=== PATIENT | male | born 1965 | race Caucasian/White ===

== ENCOUNTER 2024-10-30 10:29 | Day surgery (SDC) | payer OTHER, SELFPAY ==
[2024-10-27 14:14] VITALS: BMI 33.2
[2024-10-27 14:36] LABS: % Basophils 0.6 % (0-2); % Eosinophils 1.9 % (0-6); % Immature Granulocytes 0.2 % (0-0.5); % Lymphocytes 18.2 % (20.5-51.1); % Monocytes 12.9 % (1.7-9.3); % Neutrophils 66.2 % (42.2-75.2); Absolute Eosinophils 0.1 10^3/uL (0-0.7); Absolute Lymphocytes 0.9 10^3/uL (1.2-3.4); Absolute Monocytes 0.6 10^3/uL (0.1-0.6); Absolute Neutrophils 3.1 10^3/uL (1.4-6.5); Mean Corp Hgb Conc. 33.3 g/dL (33.0-37.0); Mean Corpuscular Hgb 27.5 pg (27.0-31.0); Mean Corpuscular Volume 82.5 fL (80.0-94.0); Mean Platelet Volume 9.4 fL (7.4-10.4); Nucleated Red Blood Cells % 0 % (-); Platelet Count 218 10^3/uL (130-400); Red Blood Cell Count 5.82 10^6/uL (4.70-6.10); Red Cell Dist. Width 14.5 % (11.5-14.5); White Blood Cell Count 4.7 10^3/uL (4.8-10.8)
[2024-10-27 14:44] LABS: Erythrocyte Sed Rate 7 mm/hour (0-20)
[2024-10-27 14:57] LABS: Blood Urea Nitrogen 18 mg/dl (9-20); Calcium 9.8 mg/dl (8.4-10.2); Carbon Dioxide 25 mmol/L (22-30); Chloride 102 mmol/L (98-107); Estimated Creatinine Clearance 123 ml/min; Glucose 238 mg/dl (70-99); Potassium 4.7 mmol/L (3.5-5.1); Sodium 137 mmol/L (135-145); eGFR > 60.00
[2024-10-30] VITALS (18 sets, daily range): BP systolic 110–176; BP diastolic 65–100; BMI 33.2
[2024-10-30 11:23] LABS: Glucose - Point of Care 242 mg/dl (70-99)
[2024-10-30] MEDS: NORMOSOL-R/PLASMALYTE-A 1000 IV (11:24)
[2024-10-30] MEDS: CELEBREX 200 MG PO (11:25)
[2024-10-30] MEDS: TYLENOL 1000 MG PO (11:25)
[2024-10-30] MEDS: NOVOLOG vial 2 UNITS SC (12:14)
[2024-10-30 13:32] LABS: Glucose - Point of Care 224 mg/dl (70-99)
[2024-10-30 14:54] LABS: Glucose - Point of Care 169 mg/dl (70-99)
--- NOTE | 2024-10-30 15:54 | HPS.HSE ---
Family Physician
-
Family Physician: Madhavi Dial
Chief Complaint
-
Post-op for Charcot Reconstruction
History of Present Illness
56-year-old male with past medical history of diabetes mellitus, hyperlipidemia, hypertension who is presenting on postop day 0 status post right foot external fixator application and Charcot reconstruction. Patient admitted for postoperative
observation. Last hemoglobin A1c was 9.5 on 08/28/24. Patient states that he is feeling well post procedure. Denies any acute complaints at this time. Notes other than foot pain, has only been dealing with chronic back pain at home. Otherwise, no
recent medical issues. Chronic medical conditions as above.
Medical History
Past Medical History
Past Medical History: Reports Other
Additional Past Medical History:
Type 2 diabetes mellitus, hyperlipidemia, hypertension
Past Surgical History: Reports Other
Additional Past Surgical History:
Appendectomy ()
Social History
Tobacco: Non-smoker
Alcohol: Occasional
Drug: None
Family History
Family History: Not pertinent
Allergies / Home Medications
Allergies reflects when Allergies were last updated in [facility].
Home Medications with original date entered in [employer] [facility]
Allergy/Medication List:
NKDA
Jardiance 25 mg p.o. daily
Losartan 25 mg p.o. daily
Metformin 1000 mg p.o. twice daily
Rosuvastatin 5 mg p.o. daily
Review of Systems
-
History Source: Patient
Constitutional: Reports No Symptoms
Respiratory: Reports No Symptoms
Cardiac: Reports No Symptoms
Abdomen/GI: Reports No Symptoms
Musculoskeletal: Reports Joint Pain
Neurological: Reports No Symptoms
Physical Exam
Vital Signs
Vital Signs
Temp Pulse Resp BP Pulse Ox
97.6 F 86 14 133/73 96
10/30/24 14:50 10/30/24 15:15 10/30/24 15:15 10/30/24 15:15 10/30/24 15:15
Physical Exam
General: No Apparent Distress, Comfortable and Conversant
HEENT: NormoCephalic and Anicteric
Respiratory: Clear; No Wheezes, Rales or Rhonchi
Cardiac: S1/S2 and Regular Rhythm
GI: Soft and Non Tender
Musculoskeletal: Other (external fixation device on the right foot wrapped in STACY bandage)
Skin: Warm
Neuro: Awake, Alert and Oriented
Psych: Calm
Laboratory Results
-
10/27/24 13:29
10/27/24 13:29
Data Reviewed
-
Lab Data: Labs Reviewed by me
Impression/Plan
-
1. Charcot Arthropathy
- POD #0 for external fixation device placement and Charcot reconstruction surgery
- Per podiatry:
- Strict non-weight bearing
- Ancef x 3 dose
- PT/OT eval and treat
- Home dressings and pin care 3x/week
- Pain Control per podiatry
2. Type 2 DM
- Continue Home Medications
- Start Insulin Sliding Scale (Moderate Resistance)
- HbA1c (08/30/24): 9.5
3. HLD
- Continue Home Medication (Rosuvastatin)
4. HTN
- Continue Home Medication (Losartan)
[2024-10-30 15:55] LABS: Glucose - Point of Care 147 mg/dl (70-99)
--- NOTE | 2024-10-30 16:00 | W.PN.UPDATE ---
Update Note
Progress Note Update
I personally performed a history and physical exam of the patient and discussed management with the resident. I reviewed the resident's note and agree with the documented findings and plan of care HPI/CC.
Patient is a 59-year-old male with past medical history of hyperlipidemia, maa-[id number] diabetes mellitus, essential hypertension, neuropathy who was brought into for elective right foot surgery of charcoaled foot. Patient
postoperatively requires IV pain medication and evaluation by physical therapist in the morning and hospitalist service were requested for patient to be admitted. Patient was seen in PACU and lying comfortably. Not voicing any complaint of ongoing
problems of dizziness/shortness of breath/chest pain/palpitation/abdominal pain/nausea/vomiting. No change in bowel bladder habits.
HEENT: No pallor, cyanosis, or jaundice. Throat clear.
NECK: Supple. No JVD.
RESPIRATORY: Lungs clear to auscultation.
CVS: S1, S2 normal. RRR. No murmur, rub or gallop.
ABDOMEN: Soft, non-tender. No distension. BS+/normal.
EXTREMITIES: Right foot dressing in place
CAMP MANAGER: AOx3. No focal deficits.
1. Status post surgical fixation of right charcoat foot
- POD # 0 after external fixation/foot sx
- Electric[employer]station to manage postoperative care
- Maintain on IV Dilaudid/oral pain medication for pain control
- PT to evaluation in the morning
2. NIDDM
- Maintain on home dose of metformin/Jardiance
- Start 1800 ADA diet
- Maintain on insulin sliding scale
3. Essential HTN
- conitnue on losartan
4. HLD
- maintain on crestor
DVT PPX -scd
Full code
Total time spent : 77 mins
I personally saw and examined the patient.
I have reviewed all diagnostic interpretations and treatment plans as written.
Time includes patient management by me, time spent at the patients bedside, time to review lab and imaging results, discussing patient care, documentation in the medical record, and time spent with the family or caregiver and discussing care plan
with RN/Consultants.
[2024-10-30] MEDS: NOVOLOG FLEXPEN-MODERATE RESISTANCE SC (16:11)
[2024-10-30] MEDS: NEURONTIN 300 MG PO ×2 (16:14→21:28)
[2024-10-30] MEDS: LOVENOX 40 MG SC (18:29)
--- NOTE | 2024-10-30 18:53 | SUR.PHASEI ---
comfortable in pacu, awaiting bed availability. vss, color good, glucose monitored and tolerating diet. visits briefly in pacu and kept updated.
[2024-10-30] MEDS: GLUCOPHAGE XR EXTENDED RELEASE 1000 MG PO ×2 (19:24→21:28)
[2024-10-30 19:25] LABS: Glucose - Point of Care 343 mg/dl (70-99)
[2024-10-30] MEDS: ANCEF 5 IV (19:26)
[2024-10-30] MEDS: NOVOLOG vial 6 UNITS SC (19:57)
[2024-10-30 21:45] LABS: Glucose - Point of Care 224 mg/dl (70-99)
[2024-10-31 03:05] VITALS: BP 142/83
[2024-10-31] MEDS: ANCEF 5 IV ×2 (05:26→13:25)
[2024-10-31 06:10] LABS: Hematocrit 41.1 % (39.0-52.0); Hemoglobin 13.8 g/dL (13.0-18.0); Mean Corp Hgb Conc. 33.6 g/dL (33.0-37.0); Mean Corpuscular Hgb 27.5 pg (27.0-31.0); Mean Platelet Volume 9.1 fL (7.4-10.4); Platelet Count 192 10^3/uL (130-400); Red Blood Cell Count 5.01 10^6/uL (4.70-6.10); Red Cell Dist. Width 14.6 % (11.5-14.5); White Blood Cell Count 6.2 10^3/uL (4.8-10.8)
[2024-10-31 06:34] LABS: Blood Urea Nitrogen 14 mg/dl (9-20); Carbon Dioxide 22 mmol/L (22-30); Chloride 107 mmol/L (98-107); Estimated Creatinine Clearance > 125 ml/min; Glucose 174 mg/dl (70-99); Potassium 4.3 mmol/L (3.5-5.1); Sodium 135 mmol/L (135-145); eGFR > 60.00
[2024-10-31 07:00] VITALS: BP 149/84
[2024-10-31 07:41] LABS: Glucose - Point of Care 178 mg/dl (70-99)
--- NOTE | 2024-10-31 07:54 | W.PN.HOSP.TC ---
Today's Communication/Plan
-
.
Assessment / Plan
Assessment / Plan
1. Charcot Arthropathy
- POD #1 for external fixation device placement and Charcot reconstruction surgery
- Per podiatry:
- Strict non-weight bearing
- Ancef x 3 dose (complete)
- PT/OT eval and treat
- Home dressings and pin care 3x/week
- Pain Control per podiatry
- Rolling Walker
2. Type 2 DM
- Continue Home Medications
- Start Insulin Sliding Scale (Moderate Resistance)
- HbA1c (08/30/24): 9.5
- Repeat at goal, 7.7
3. HLD
- Continue Home Medication (Rosuvastatin)
4. HTN
- Continue Home Medication (Losartan)
Cleared for discharge.
Anticipated Discharge: Today
Subjective/Interval History
-
Date of Service: October 31, 2024
Patient seen and examined while resting comfortably in bed. No acute complaints this morning. States that pain is well controlled on current regimen of medication. Physical therapy to come in this morning.
Objective Data
-
Labs:
Laboratory Results
10/31/24
05:28
WBC 6.2
Hgb 13.8
Hct 41.1
Plt Count 192
Sodium 135
Potassium 4.3
Chloride 107
Carbon Dioxide 22
BUN 14
Creatinine 0.6 L
Glucose 174 H
Calcium 9.0
Vital Signs:
Vital Signs
Temp Pulse Resp BP Pulse Ox
99.3 F 97 16 149/84 94
10/31/24 07:00 10/31/24 07:00 10/31/24 07:00 10/31/24 07:00 10/31/24 07:00
I&O
10/30/24 10/31/24 11/01/24
06:59 06:59 06:59
Intake Total 1380 / 1380
Output Total 900 / 900
Balance 480 / 480
Review of Systems
-
History Source: Patient
Constitutional: Reports No Symptoms
Respiratory: Reports No Symptoms
Cardiac: Reports No Symptoms
Musculoskeletal: Reports No Symptoms
Neuro: Reports No Symptoms
Physical Exam
-
General: Well Developed, Well Nourished, No Apparent Distress and Comfortable
HEENT: Normocephalic and Atraumatic
Respiratory: Clear to Auscultation; Negative Wheezes, Rales or Rhonchi
Cardiac: Regular Rhythm and S1/S2
GI: Soft and Nontender
Musculoskeletal: No Clubbing, No Cyanosis, No Edema and Other (no calf tenderness. Right foot is an external fixation apparatus, STACY bandage in place. )
Skin: Warm and Dry
Neuro: Awake, Alert and Oriented
Psych: Calm
Data Reviewed
-
Labs: Labs Reviewed by me and Discussed with Patient
[2024-10-31 08:47] LABS: Glycohemoglobin (HgbA1c) 7.7 % (4.0-5.6)
[2024-10-31] MEDS: GLUCOPHAGE XR EXTENDED RELEASE 1000 MG PO (09:26)
[2024-10-31] MEDS: FARXIGA 10 MG PO (09:27)
[2024-10-31] MEDS: CRESTOR 5 MG PO (09:27)
[2024-10-31] MEDS: COZAAR 25 MG PO (09:28)
[2024-10-31] MEDS: NEURONTIN 300 MG PO (09:28)
[2024-10-31] MEDS: NOVOLOG FLEXPEN-MODERATE RESISTANCE 1 UNITS SC (09:30)
--- NOTE | 2024-10-31 09:46 | CM ---
Addendum entered by Omar Lizarraga 10/31/24 14:29:
CM met with pt again and pt's spouse at bedside.
PT and OT evaluations noted - home PT/OT recommended. Per MD, pt will need VN services for wound care, PT and OT. PT issued a walker to the pt.
According to MD pt most likely will be discharge home today.
Both pt and his spouse are aware that pt most likely will be discharged home today and pt's spouse stated she will transport the pt home. VN choices provided, [facility] preferred. A referral to [facility] made.
Please fax discharge instructions to [facility] at [phone]
D/C plan: home with [facility], walker and family support. Spouse to transport.
Original Note:
CM following re: discharge planning.
Reviewed pt's chart, met with pt.
Pt is a 59 year old male, admitted with primary dx of Charcot Arthropathy. POD #1 for external fixation device placement and Charcot reconstruction surgery.
Pt reports he lives with spouse 1SH, 1 step to enter, has no children. Pt reports he has crutches, cane and a wheelchair and pt stated he feels he will need a walker. Pt expressed his desire to return back home and his spouse will transport home.
Pt is aware he is strict NWB when goes home.
PT and OT will evaluate the pt to determine a level of care at discharge.
PCP: Madhavi Dial
Pharmacy: [facility]
D/C plan: home with anticipated VN services if recommended by PT/OT.
CM will follow with discharge plan updates as hospitalization progresses
[2024-10-31 11:00] VITALS: BP 145/82
[2024-10-31 12:44] LABS: Glucose - Point of Care 190 mg/dl (70-99)
[2024-10-31 12:53] VITALS: BP 154/91; PULSE 102; O2SAT 95
[2024-10-31 12:57] VITALS: BP 154/91; PULSE 106
[2024-10-31] MEDS: NOVOLOG FLEXPEN-MODERATE RESISTANCE SC ×2 (13:31→17:38)
--- NOTE | 2024-10-31 14:00 | W.PN.UPDATE ---
Update Note
Progress Note Update
I saw and evaluated the patient. I reviewed the resident�s note and agree with findings and plan as documented in the resident�s note.
1. Status post surgical fixation of right charcoat foot
- POD # 1 after external fixation/foot sx for charcoat foot
- [employer]s to manage postoperative care
- Pain control with regimen
- PT evaluated and patient appropriate for home discharge with rolling walker
2. NIDDM
- Maintain on home dose of metformin/Jardiance
- Start 1800 ADA diet
- Maintain on insulin sliding scale
3. Essential HTN
- conitnue on losartan
4. HLD
- maintain on crestor
DVT PPX -scd
Full code
Discussed with automotive finance manager, who will be evaluating patient later in the afternoon and patient is for discharge after that
[2024-10-31 15:00] VITALS: BP 155/81
--- NOTE | 2024-10-31 16:32 | W.PN.SURGUPD ---
Surgical Update
Surgical Update
59 yo M s/p RLE external fixator application
-Patient seen and evaluated at bedside, dressings remain C/D/I
-RLE WB for transfer acceptable
-Stable for DC
-Follow up in 2 weeks at [facility]
[2024-10-31] MEDS: NEURONTIN PO (17:38)
[2024-10-31] MEDS: GLUCOPHAGE XR EXTENDED RELEASE PO (17:39)
--- NOTE | 2024-10-31 17:50 | W.DCSUMMARY ---
Discharge Summary
Discharge Data
Date of Admission: 10/30/24
Date of Discharge: 10/31/24
Total time spent discharging patient (in min): 31
-
Pending Results: No
Hospital Course
Mr. Moreau is a 59-year-old male with a past medical history of diabetes mellitus, hyperlipidemia, hypertension, and chronic back pain who presented on postoperative day 0 status post right foot external fixator application and Charcot
reconstruction. He was admitted to [facility] for postoperative observation. The patient was feeling well postprocedure and denied any acute complaints at that time other than postprocedural foot pain.
Patient was maintained on IV and oral pain medications status post his procedure. His chronic medical conditions were treated with his home medications with the addition of an insulin sliding scale and a diabetic diet. The patient received
physical therapy on 10/31 and was cleared for discharge home with home physical therapy. The patient was discharged home on 10/31/2024.
DISCHARGE RECOMMENDATIONS
Weight-bear on the right lower extremity for transfers only.
Continue home medications as prior to admission.
Follow-up with [facility] in 2 weeks.
Follow-up with primary care provider for additional recommendations.
Discharge Plan
-
Patient Disposition: Home (Routine Discharge)
Discharge Diagnosis/Procedures: Right Lower Extremity External Fixator Application
Condition: Fair
Diet: Diabetic, Carb Controlled
Activity: Other activity
Additional Activity: Right Lower Extremity Weight Bearing for Transfer Acceptable
Referrals:
Kiran Lopez DPM [Active, Podiatry] - in two weeks
Madhavi Dial NP [Family Provider, Family Practice] - in less than 1 week
Prescriptions:
Continued
losartan 25 mg Tablet
25 mg PO DAILY
metformin 500 mg Tablet Extended Release 24 Hr
1,000 mg PO BID
rosuvastatin [Crestor] 5 mg Tablet
5 mg PO DAILY
Jardiance 25 mg Tablet
25 mg PO DAILY
Discharge Orders:
Discharge Patient (As Directed); Ordered 10/31/24
Ordered By: Todd Mayo
Discharge Date and Time
Print Language: MAORI
== END 2024-10-31 17:40 | disposition home health service (06) ==
LOC: PACU 10:29
PROVIDERS: Student in an Organized Health Care Education/Training Program; FAMILY PHYSICIAN Nurse Practitioner Family
DX: M14.671 Charcot's joint, right ankle and foot (principal); M67.01 Short Achilles tendon (acquired), right ankle
CPT/HCPCS: 20692; C1734; 36415; 73620; 76000; 80048; 82962; 83036; 85025; 85027; 85652; 86140; 97116; 97162; 97166

== ENCOUNTER 2025-01-29 06:48 | Day surgery (SDC) | payer OTHER, SELFPAY ==
[2025-01-29] VITALS (9 sets, daily range): BP systolic 127–148; BP diastolic 75–89; BMI 33.7
[2025-01-29] MEDS: TYLENOL 1000 MG PO (09:36)
[2025-01-29] MEDS: CELEBREX 200 MG PO (09:36)
[2025-01-29] MEDS: NORMOSOL-R/PLASMALYTE-A 1000 IV (09:46)
[2025-01-29 09:47] LABS: Glucose - Point of Care 205 mg/dl (70-99)
[2025-01-29] MEDS: NOVOLOG vial 2 UNITS SC (10:18)
[2025-01-29 12:11] LABS: Glucose - Point of Care 168 mg/dl (70-99)
== END 2025-01-29 13:46 | disposition home or self-care (01) ==
LOC: SDS 06:48
PROVIDERS: ATTENDING PHYSICIAN Student in an Organized Health Care Education/Training Program
DX: T84.84XA Pain due to internal orthopedic prosthetic devices, implants and grafts, initial encounter (principal); M14.671 Charcot's joint, right ankle and foot; M67.01 Short Achilles tendon (acquired), right ankle; Y79.2 Prosthetic and other implants, materials and accessory orthopedic devices associated with adverse incidents
CPT/HCPCS: 20694; 73610; 76000; 82962